=== PATIENT | female | born 1935 | race Caucasian/White ===

== ENCOUNTER → 2017-08-22 16:05 | Outpatient (CLI) | payer MEDICARE, OTHER, SELFPAY | PROVIDERS: PCP Internal Medicine; Visit Provider Physician Assistant | DX: R30.0 Dysuria (principal) | CPT/HCPCS: 87077; 87086; 87186 ==

== ENCOUNTER → 2017-11-06 09:28 | Outpatient (CLI) | payer MEDICARE, OTHER, SELFPAY ==
[2017-11-10 21:42] LABS: Chromium, Plasma 0.2 mcg/L (< 1.3)
== END ==
PROVIDERS: PCP Internal Medicine; Visit Provider Internal Medicine
DX: Z00.00 Encounter for general adult medical examination without abnormal findings (principal); M85.832 Other specified disorders of bone density and structure, left forearm; Z78.0 Asymptomatic menopausal state; Z85.3 Personal history of malignant neoplasm of breast; Z96.642 Presence of left artificial hip joint
CPT/HCPCS: 36415; 77080; 82495; 83018